=== PATIENT | female | born 1950 | race Caucasian/White ===

== ENCOUNTER 2018-12-02 08:11 | Day surgery (SDC) | payer BC ==
[2018-11-24 16:07] VITALS: BMI 45.7
--- NOTE | 2018-11-29 09:09 | HP ---
Admitting History and Physical - Primary Care Physician PCP: Fantasma Hough - Admission Chief Complaint: left breast cancer History of Present Illness: Patient is a 68 yo female who was noted to have a suspicious mass on mammo and US in the left 12 oclock position. Patient underwent an US core bx of this lesion on 10/04/2018 which was c/w invasive lobular carcinoma and LCIS ER and AR positive Her 2 neg. Patient had an MRI done 10/22 which was c/w known cancer as well as a left intramammary lymph node. She is now scheduled for a left breast WE with NL, snbx possible andx. History Source: Patient Limitations to Obtaining History: No Limitations - Past Medical History Cardiovascular: Yes: HTN Endocrine: Yes: Hypothyroidism - Past Surgical History Past Surgical History: Yes: Cataract Removal (2018), (x 2 (78 and 81)) - Smoking History Smoking history: Never smoked Have you smoked in the past 12 months: No - Alcohol/Substance Use Hx Alcohol Use: No Home Medications - Allergies Allergies/Adverse Reactions: Allergies Allergy/AdvReac Type Severity Reaction Status Date / Time No Known Drug Allergies Allergy Verified 11/05/18 14:14 - Home Medications Home Medications: Ambulatory Orders Chlorthalidone 25 mg PO DAILY 11/05/18 Citalopram Hydrobromide [Celexa -] 10 mg PO HS 11/05/18 Diltiazem HCl [Diltiazem 24Hr Cd] 240 mg PO DAILY 11/05/18 Levothyroxine Sodium 175 mcg PO DAILY 11/05/18 Metoprolol Succinate 50 mg PO HS 11/05/18 Family Disease History - Family Disease History Family History: Unremarkable Review of Systems - Review of Systems Constitutional: reports: No Symptoms Cardiovascular: reports: No Symptoms Respiratory: reports: No Symptoms Physical Examination Constitutional: Yes: Well Nourished Breast(s): Yes: Other (Ptotic full C-cup breasts. Left breast is slightly larger. No other suspicious masses or adenopathy noted bilaterally.) Problem List - Problems (1) Breast cancer, left breast Code(s): C50.912 - MALIGNANT NEOPLASM OF UNSPECIFIED SITE OF LEFT FEMALE BREAST Qualifiers: Breast location: overlapping sites of breast Estrogen receptor status: positive Patient sex: female Qualified Code(s): C50.812 - Malignant neoplasm of overlapping sites of left female breast; Z17.0 - Estrogen receptor positive status [ER+] Assessment/Plan PLan: Left breast WE with NL, snbx possible andx and lymphoscintogram
[2018-12-02] MEDS ORDERED: BUPIVACAINE HCL/PF 2.5 MG/ML - 30 ML VIAL IJ ONE (12:15)
[2018-12-02] MEDS ORDERED: LIDOCAINE HCL 1% PRESERVATIVE FREE - 30ML VIAL ONE (12:15)
[2018-12-02] MEDS ORDERED: GUM MASTIC/STORAX/MSAL/ALCOHOL 1 DRP DROPSBTL MC ONE (12:15)
[2018-12-02] MEDS ORDERED: ISOSULFAN BLUE 10 MG/ML VIAL SQ ONE (12:24)
[2018-12-02] MEDS ORDERED: MIDAZOLAM HCL 2 MG/2 ML SINGLE DOSE VIAL ONE (12:50)
[2018-12-02] MEDS ORDERED: PROPOFOL 20 ML ONE (12:50)
[2018-12-02] MEDS ORDERED: LIDOCAINE HCL/PF 2% SDV 5ML VIAL ONE (12:50)
[2018-12-02] MEDS ORDERED: oxyCODONE HCL 5 MG TABLET PO PRN (13:02)
[2018-12-02] MEDS ORDERED: PROMETHAZINE HCL 25 MG/1 ML VIAL IVPUSH PRN (13:02)
[2018-12-02] MEDS ORDERED: ONDANSETRON 4 MG/2 ML VIAL IVPUSH PRN ×2 (13:02→15:41)
[2018-12-02] MEDS ORDERED: LACTATED RINGERS SOLUTION 1,000 ML IV SCH (13:15)
[2018-12-02] MEDS ORDERED: SODIUM CHLORIDE 0.9% P/F 10 ML VIAL IJ ONE (13:48)
[2018-12-02] MEDS ORDERED: ceFAZolin SODIUM 1 GM VIAL ONE (13:48)
[2018-12-02] MEDS ORDERED: ONDANSETRON 4 MG/2 ML VIAL ONE (13:50)
[2018-12-02] MEDS ORDERED: DEXAMETHASONE SOD PHOSPHATE 4 MG/1 ML VIAL ONE (13:50)
[2018-12-02] MEDS ORDERED: KETOROLAC TROMETHAMINE 30 MG/1 ML VIAL ONE (14:28)
[2018-12-02] MEDS ORDERED: ACETAMINOPHEN 1000 MG/100 ML VIAL (NON FORMULARY) IVPB ONE (15:40)
[2018-12-02] MEDS ORDERED: KETOROLAC TROMETHAMINE 30 MG/1 ML VIAL IVPUSH PRN (15:41)
[2018-12-02] MEDS ORDERED: DEXTROSE 5%-0.45% SALINE 1,000 ML IV SCH (15:45)
--- NOTE | 2018-12-02 16:16 | OP ---
DATE OF OPERATION: 12/02/2018 PREOPERATIVE DIAGNOSIS: Left breast cancer, 12 o'clock, overlapping region. POSTOPERATIVE DIAGNOSIS: Left breast cancer, 12 o'clock, overlapping region. PROCEDURE: Left breast partial mastectomy with needle localization and left axillary sentinel lymph node biopsy with tissue transfer, slight reduction mastopexy approach. ANESTHESIA: General laryngeal mask airway anesthesia. PRIMARY SURGEON: Handy Hough MD MANAGER SYSTEM: RUDOLPH Landrum COMPLICATIONS: None. Briefly, the patient is a 68-year-old, G7, P5, postmenopausal white female of [place] descent with no family history of breast or ovarian cancer. She underwent a mammography September 13, 2018, showing some left breast upper outer quadrant asymmetry. An ultrasound showed a 1.6-cm irregular density 6 cm from the nipple at the left breast 12 o'clock region. Ultrasound-guided core biopsy showed an infiltrating lobular cancer, classical type which was ER/MT positive, HER2/vivian negative. The patient had an MRI showing cancer to be localized and underwent cardiac clearance and was a good candidate for a partial mastectomy and sentinel lymph node biopsy. Given her slight discrepancy with her left breast larger than the right, we decided to perform a slight reduction mastopexy at the same sitting. The patient was brought in through ambulatory surgery on December 02, 2018. She first underwent a lymph node scintigraphy and needle localization at [facility] and was brought to the [facility]. In the holding area, site verification was made, and informed consent was obtained. She was brought into the operating room and laid on the OR table in a supine position. Venodynes were placed on the lower extremities. She was given a gram of Ancef prior to incision. She underwent general laryngeal mask airway anesthesia. The left breast was sterilely prepped and draped in the usual fashion with the left arm prepped in the field. Then, 3 mL of Lymphazurin blue were injected intradermally and peritumorally around the needle localization site. Massage was instituted. Timeout was then performed. At this point, an incision was made just below the hair-bearing area of the left axilla and dissection was undertaken and 2 hot nodes were easily found in the level 1 region of the left axilla with the first node having a 10-second gamma count of 4122, second sentinel node having a 10-second gamma count of 7561. No other blue or hot nodes were found, and background count was 259. Hemostasis was achieved. The axillary wound was closed using interrupted 2-0 plain suture to close the deep subcutaneous tissue, and then, the skin was closed using interrupted 3-0 deep dermal, Vicryl suture and a running 4-0 subpedicular Biosyn suture. Wide excision was then undertaken around the needle localization using a slight batwing mastopexy reduction approach. A curvilinear incision was made around the left breast areolar border with a batwing-type incision, removing an area of skin and dissecting around the needle localization site at the 12 o'clock region. The breast tissue was completely removed around the needle localization with the wire in the middle of the specimen. Specimen was oriented with a long lateral/short superior suture, and specimen radiograph showed removal of the clip in question. Separate margins were then taken on the superior, inferior, medial, lateral, deep, and anterior margins with the suture marking the biopsy cavity side. Hemostasis was achieved, and the wound was copiously irrigated with warm sterile saline. At this point, there was a large 8 x 10 cm tissue transfer closure to perform the slight left mastopexy procedure. The breast tissue was reapproximated using 2-0 plain suture. The skin was closed using interrupted, 3-0 deep dermal Vicryl suture and a running 4-0 subpedicular Biosyn suture. Mastisol and Steri-Strips were applied over both wounds, and she was placed in a surgical bra postoperatively. All sponge and needle counts were correct at the end of the case, and estimated blood loss was about 50 mL. She was hemodynamically stable throughout. Laryngeal mask airway tube was removed at the end of the case, and she will be recovered in the postanesthesia care unit and discharged home the same day once discharge criteria are met. She is to follow up in the office in 1 week for a formal wound and pathology check. HANDY HOUGH M.D. [id number]
[2018-12-02 16:22] VITALS: TEMP 98.3
[2018-12-02 17:32] VITALS: BP 123/85; PULSE 86
--- NOTE | 2018-12-08 10:34 | PATH ---
Surgical Pathology Report Patient Name: NAZIA CUENCA [facility]. Rec. #: [id number] /Age/Gender: 1950 (Age: 68) / F Account: [id number] Location: [facility] AM[facility] Taken: 12/02/2018 Received: 12/02/2018 Reported: 12/08/2018 Physicians: Fantasma Hough M.D. Specimen(s) Received A: LEFT BREAST SENTINEL NODE #1 B: LEFT BREAST SENTINEL NODE #2 C: LEFT BREAST NON SENTINEL NODE D: LEFT BREAST WIDE EXCISION E: LEFT BREAST MEDIAL MARGIN F: LEFT BREAST SUPERIOR MARGIN G: LEFT BREAST INFERIOR MARGIN H: LEFT BREAST LATERAL MARGIN I: LEFT BREAST ANTERIOR MARGIN J: LEFT BREAST DEEP MARGIN Clinical History Invasive Ca Final Diagnosis A. lymph node, left breast, sentinel #1, excision: One lymph node, negative for metastatic carcinoma on H&E stained sections and cytokeratin (AE1/3) immunostain (0/1). B. lymph node, left breast, sentinel #2, excision: One lymph node, negative for metastatic carcinoma on H&E stained sections and cytokeratin (AE1/3) immunostain (0/1). C. lymph node, left breast, non-sentinel, excision: One lymph node, negative for metastatic carcinoma on H&E stained sections and cytokeratin (AE1/3) immunostain (0/1). D. breast, left, wide excision: Invasive lobular carcinoma with pleomorphic features (tubule score: 3/3, nuclear grade: 2/3, mitotic score: 1/3, total score: 6/9; Waldo grade 2). (See note) Invasive carcinoma measures 2.1 cm in greatest dimension, microscopically. Lobular carcinoma in situ (LCIS), classical type. Invasive carcinoma is close to (< 1 mm) the superior margin. see specimens E-J FOR final margins. Skin is present and is uninvolved by carcinoma. Lymphovascular invasion is identified. Prior biopsy site changes are identified. Pathologic stage (ptnm): pT2 pN0. see also invasive carcinoma case Summary below. Note: The carcinoma is negative for E-Cadherin (performed at [facility]), which supports lobular phenotype. E. breast, left, medial margin, excision: Breast tissue showing Focal atypical ductal hyperplasia (ADH). F. breast, left, superior margin, excision: Benign fibroadipose tissue. G. breast, left, inferior margin, excision: Benign breast tissue showing proliferative fibrocystic changes including cystic apocrine metaplasia with usual and papillary ductal hyperplasia. H. breast, left, lateral margin, excision: Benign breast tissue. I. breast, left, anterior margin, excision: Benign breast tissue. J. breast, left, deep margin, excision: Benign breast tissue. Comments Breast Invasive Carcinoma: Surgical Pathology Case Summary (Based on AJCC TNM 8 th edition) Procedure _X_ Excision (less than total mastectomy) Specimen Laterality _X_ Left Tumor Size _X_ Greatest dimension of largest invasive focus >1 mm (millimeters): 21 mm Histologic Type _X_ Invasive lobular carcinoma Histologic Grade ([place] Histologic Score) Glandular (Acinar)/Tubular Differentiation _X_ Score 3 (<10% of tumor area forming glandular/tubular structures) Nuclear Pleomorphism _X_ Score 2 Mitotic Rate _X_ Score 1 Overall Grade _X_ Grade 2 (scores of 6 or 7) Tumor Focality _X_ Single focus of invasive carcinoma Ductal Carcinoma In Situ (DCIS) _X_ No DCIS in specimen Margins Invasive Carcinoma Margins _X_ Uninvolved by invasive carcinoma Distance from closest margin (millimeters): cannot be determined (Invasive carcinoma extends to the superior margin in wide excision D; final superior margin F is negative for carcinoma. Regional Lymph Nodes _X_ Uninvolved by tumor cells Number of Lymph Nodes Examined: 3 Number of Daniels Nodes Examined: 2 Treatment Effect _X_ No known presurgical therapy Lymphovascular Invasion _X_ Present Pathologic Stage Classification (pTNM, AJCC 8th Edition) Primary Tumor (Invasive Carcinoma) (pT) _X_ pT2: Tumor >20 mm but =50 mm in greatest dimension Regional Lymph Nodes (pN) Category (pN) _X_ pN0: No regional lymph node metastasis identified or ITCs only Biomarker Studies Results of ER and VT studies performed on this specimen (block D3) at [facility] are as follows: ER (clone [id number] mouse monoclonal antibody by [employer]): > 90 % nuclear staining with strong intensity (positive VT (clone16 mouse monoclonal antibody by [employer]): 0 % nuclear staining (negative). Results of Her2 and Ki67 studies will be reported separately in an addendum. Positive and negative controls (internal if applicable) show appropriate results. Formalin fixation and cold ischemic times are within current ASCO/CAP recommendations for ER, VT and Her2 testing. Electronically Signed Estela Lake M.D. Addendum Reported: 12/09/2018 Addendum Diagnosis Results of Her2 (IHC) & Ki-67 studies performed on block D3 at [place], [place] ([id number]) are as follows: Her2 IHC (EP3 from [employer], formerly known as [id number], using [employer] Polymer Refine detection kit): 0 (negative). Ki-67: ~15% (low proliferative index). Positive and negative controls (internal if applicable) show appropriate results. Estela Lake M.D. Gross Description A. Received in formalin labeled "left breast sentinel node #1," is a 0.9 x 0.6 x 0.6 cm lymph node with attached fat. The specimen is bisected and entirely submitted in one cassette. B. Received in formalin labeled "left breast sentinel node #2," is a 1.5 x 0.8 x 0.6 cm lymph node with attached fat. The specimen is bisected and entirely submitted in one cassette. C. Received in formalin labeled "left breast non-sentinel node," is a 0.9 x 0.5 x 0.5 cm lymph node with attached fat. The specimen is bisected and entirely submitted in one cassette. D. Received in formalin, labeled "left breast wide excision," is a 8.5 x 6.3 x 5.0 cm. kang-yellow, irregular, portion of fibroadipose tissue with a needle localization wire present. There is a short suture marking the superior aspect and a long suture marking the lateral aspect, per the surgeon. The anterior surface displays a 3.5 x 0.9 cm kang, irregular portion of skin. The specimen is inked as follows: Superior blue; inferior green; lateral red; medial yellow; deep black. The specimen is serially sectioned from inferior to deep. Sectioning reveals a 1.8 x 1.5 x 1.2 cm kang, indurated, ill-defined mass focally at 0.4 cm from the superior margin. The remaining margins appear widely clear of the mass. [employer] sections are submitted in seven cassettes as follows: 1-full-face section of mass with superior margin; 2-additional mass with superior margin; 3-mass with medial margin; 4-mass with deep margin; 5-inferior margin; 6-lateral margin; 7-skin. Time to formalin fixation: 5 minutes Total formalin fixation time: Approximately 27 hours. E. Received in formalin labeled "left breast medial margin," is a 3.1 x 2.7 x 0.7 cm portion of fibroadipose tissue with a suture marking the biopsy cavity side, per the surgeon. The new margin is inked black and the specimen is serially sectioned. The specimen is entirely and sequentially submitted in 4 cassettes. F. Received in formalin labeled "left breast superior margin," is a 2.7 x 2.3 x 0.9 cm portion of fibroadipose tissue with a suture marking the biopsy cavity side, per the surgeon. The new margin is inked black and the specimen is serially sectioned. The specimen is entirely submitted in 3 cassettes. G. Received in formalin labeled "left breast inferior margin," is a 2.5 x 2.5 x 0.8 cm portion of fibroadipose tissue with a suture marking the biopsy cavity side, per the surgeon. The new margin is inked black and the specimen is serially sectioned. The specimen is entirely submitted in 3 cassettes. H. Received in formalin labeled "left breast lateral margin," is a 3.1 x 2.4 x 0.8 cm portion of fibroadipose tissue with a suture marking the biopsy cavity side, per the surgeon. The new margin is inked black and the specimen is serially sectioned. The specimen is entirely and sequentially submitted in 4 cassettes. I. Received in formalin labeled "left breast anterior margin," is a 2.1 x 2.0 x 0.9 cm portion of fibroadipose tissue with a suture marking the biopsy cavity side, per the surgeon. The new margin is inked black and the specimen is serially sectioned. The specimen is entirely submitted in 2 cassettes. J. Received in formalin labeled "left breast deep margin," is a 2.9 x 2.7 x 0.9 cm portion of fibroadipose tissue with a suture marking the biopsy cavity side, per the surgeon. The new margin is inked black and the specimen is serially sectioned. The specimen is entirely submitted in 3 cassettes. DL12/03/2018 saudi12/03/2018
== END 2018-12-02 17:15 | disposition home or self-care (01) ==
LOC: FASU 08:11
PROVIDERS: ATTEND Surgery Surgical Oncology
PROC: 0HBU0ZZ Excision of Left Breast, Open Approach (ICD-10-PCS; principal; 2018-12-02 13:59)
PROC: 0JX60ZC Transfer Chest Subcutaneous Tissue and Fascia with Skin, Subcutaneous Tissue and Fascia, Open Approach (ICD-10-PCS; 2018-12-02 13:59)
DX: C50.812 Malignant neoplasm of overlapping sites of left female breast (principal); Z17.0 Estrogen receptor positive status [ER+]; I10 Essential (primary) hypertension; E03.9 Hypothyroidism, unspecified
CPT/HCPCS: 19281; 78195-TC; 88304-TC; 88307-TC; 88342-TC; 94760; A9541; J0131